=== PATIENT | female | born 1985 ===

== ENCOUNTER 2017-11-02 20:38 | Inpatient (IN) | payer MEDICAID ==
[2017-11-02] MEDS ORDERED: Sodium Chloride 0.9% 10 ML Syringe FLUSH PRN (21:10)
[2017-11-02] MEDS: Lactated Ringers 1,000 ML IV SCH ×2 (22:01→23:05)
--- NOTE | 2017-11-02 22:46 | PCM.PREANE ---
Preanesthetic Assessment - Anesthesia/Transfusion/Family Hx Anesthesia History: Prior Anesthesia Without Reaction Family History of Anesthesia Reaction: No Transfusion History: Prior Transfusion Without Reaction Intubation History: Unknown - Review of Systems General: No Symptoms Pulmonary: No Symptoms Cardiovascular: No Symptoms, Lightheadedness (with extreme activites) Gastrointestinal: No Symptoms (GERD), Constipation, Nausea Neurological: No Symptoms Other: Reports: Easy Bruising, Sinus Problem - Physical Assessment NPO Status Date: 11/02/17 NPO Status Time: 23:30 Pulse: 82 O2 Sat by Pulse Oximetry: 99 Respiratory Rate: 19 Blood Pressure: 127/86 Temperature: 36.5 C Vital Signs: Last Vital Signs Temp 36.5 C 11/02/17 20:52 Pulse 82 11/02/17 20:52 Resp 19 11/02/17 20:52 BP 127/86 11/02/17 20:52 Pulse Ox Height: 1.6 m Weight: 141.339 kg ASA Class: 2 Mental Status: Alert & Oriented x3 Airway Class: Mallampati = 3 Dentition: Reports: Normal Dentition, Caries Thyro-Mental Finger Breadths: 3 Mouth Opening Finger Breadths: 3 ROM/Head Extension: Full Lungs: Clear to Auscultation, Normal Respiratory Effort Cardiovascular: Regular Rate, Regular Rhythm, No Murmurs - Lab Values: Laboratory Last Values WBC 10.82 K/mm3 (3.98-10.04) H 11/02/17 21:25 RBC 3.86 M/mm3 (3.98-5.22) L 11/02/17 21:25 Hgb 11.4 gm/L (11.2-15.7) 11/02/17 21:25 Hct 34.0 % (34.1-44.9) L 11/02/17 21:25 MCV 88.1 fl (79.4-94.8) 11/02/17 21:25 MCH 29.5 pg (25.6-32.2) 11/02/17 21:25 MCHC 33.5 g/dl (32.2-35.5) 11/02/17 21:25 RDW Std Deviation 42.7 fL (36.4-46.3) 11/02/17 21:25 Plt Count 129 K/mm3 (182-369) L 11/02/17 21:25 MPV 12.7 fl (9.4-12.3) H 11/02/17 21:25 Neut % (Auto) 61.2 % (34.0-71.1) 11/02/17 21: Lymph % (Auto) 25.0 % (19.3-51.7) 11/02/17 21:25 [place] % (Auto) 12.1 % (4.7-12.5) 11/02/17 21: Eos % (Auto) 1.1 (0.7-5.8) 11/02/17 21:25 Baso % (Auto) 0.3 % (0.1-1.2) 11/02/17 21: Neut # (Auto) 6.62 K/mm3 (1.56-6.13) H 11/02/17 21: Lymph # (Auto) 2.71 K/mm3 (1.18-3.74) 11/02/17 21: [place] # (Auto) 1.31 K/mm3 (0.24-0.36) H 11/02/17 21:25 Eos # (Auto) 0.12 K/mm3 (0.04-0.36) 11/02/17 21:25 Baso # (Auto) 0.03 K/mm3 (0.01-0.08) 11/02/17 21:25 Manual Slide Review Normal smear 11/02/17 21:25 Blood Type B POSITIVE 11/02/17 21:25 Gel Antibody Screen Negative 11/02/17 21:25 Above lab values reviewed and noted and within acceptable ranges to proceed with epidural. - Allergies Allergies/Adverse Reactions: Allergies Allergy/AdvReac Type Severity Reaction Status Date / Time No Known Allergies Allergy Verified 11/02/17 21:13 - Anesthesia Plan Pre-Op Medication Ordered: Beta Sara Beta Sara: Labetalol Med Last Dose Date: 11/02/17 Med Last Dose Time: 09:30 - Acknowledgements Anesthesia Type Planned: Epidural Pt an Appropriate Candidate for the Planned Anesthesia: Yes Alternatives and Risks of Anesthesia Discussed w Pt/Guardian: Yes Pt/Guardian Understands and Agrees with Anesthesia Plan: Yes PreAnesthesia Questionnaire HEENT History: Reports: Other (See Below) (Seasonal allergies) POST ANESTHESIA ROOM NURSE History: Reports: Polycystic Ovaries, , Other (See Below) Other OB/BYN History: history of infertility Neurological History: Reports: Migraines Endocrine/Metabolic History: Reports: Obesity/BMI 30+ Dermatologic History: Reports: Eczema - Infectious Disease History Infectious Disease History: Reports: Chicken Pox - Past Surgical History HEENT Surgical History: Reports: Oral Surgery, Tonsillectomy - SUBSTANCE USE Smoking Status *Q: Never Smoker Recreational Drug Use History: No - HOME MEDS Home Medications: Home Meds Labetalol [Normodyne] 100 mg PO TID #90 tablet 10/27/17 [Rx] Vits #93/Iron Fum/FA [ Formula Tablet] 11/03/17 [History] Ranitidine HCl [Zantac] 150 mg PO 11/03/17 [History] - CURRENT (IN HOUSE) MEDS Current Meds: Current Medications Lactated Ringer's (Ringers, Lactated) 1,000 mls @ 100 mls/hr IV ASDIRECTED DC Last Admin: 11/02/17 22:01 Dose: 100 mls/hr Oxytocin 20 unit/ Lactated (Ringer's) 1,002 mls @ 500 mls/hr IV TITRATE DC PRN Reason: Protocol Sodium Chloride (Saline Flush) 10 ml FLUSH ASDIRECTED PRN PRN Reason: Keep Vein Open
[2017-11-02] MEDS ORDERED: fentaNYL 100 MCG/2 ML SDV EPIDUR PRN (22:47)
[2017-11-02] MEDS ORDERED: ePHEDrine 50 MG/ML SDV IVPUSH PRN (22:47)
[2017-11-02] MEDS ORDERED: Ondansetron 4 MG/2 ML SDV IVPUSH PRN (22:47)
[2017-11-02] MEDS ORDERED: Bupivacaine/fentaNYL/NS 100 ML Bag EPIDUR SCH (23:00)
[2017-11-03] MEDS ORDERED: Ammonia Inhalant Amp ONE (00:59)
[2017-11-03] MEDS: Lactated Ringers 1,000 ML IV SCH ×2 (04:14→07:31)
--- NOTE | 2017-11-03 06:06 | PCM.SN ---
- Free Text/Narrative Note: 0558 clear fluid, cervix 5 cm, 100 %, Soft, mid-position, cephalic -1-2 Cat I FHR. BP 120/70's-140/90's restarted labetalol 100 mg tid po. Has epidural in place.
--- NOTE | 2017-11-03 06:15 | PCM.LDHP ---
L&D History of Present Illness - General Date of Service: 11/03/17 Admit Problem/Dx: Patient Status Order with Admit Dx/Problem 11/02/17 21:10 Patient Status [ADT] Routine Admission Diagnosis/Problem Admission Diagnosis/Problem Source of Information: Patient History Limitations: Reports: No Limitations - History of Present Illness Introduction:: Jenniffer Gregory is a pleasant 32 year old with an BENITO of 2017 who presents to labor and delivery. Rupture of membranes (amniotomy) at 0558, clear fluid. This patient is Rh positive and also tested negative for GBS on 09/23/2017. Patients cervix is 5 cm 100%, mid position, soft vertex, and minus 1-2. Membranes were ruptured at 0558 with clear fluid. H/O gestational hypertension on Labetalol. Timing/Duration: Reports: hour(s): Quality: Reports: Ache, Dull, Pressure Severity: Moderate Pain Score: 7 - Related Data Allergies/Adverse Reactions: Allergies Allergy/AdvReac Type Severity Reaction Status Date / Time No Known Allergies Allergy Verified 11/02/17 21:13 Home Medications: Home Meds Labetalol [Normodyne] 100 mg PO TID #90 tablet 10/27/17 [Rx] Vits #93/Iron Fum/FA [ Formula Tablet] 11/03/17 [History] Ranitidine HCl [Zantac] 150 mg PO 11/03/17 [History] Past Medical History HEENT History: Reports: Other (See Below) (Seasonal allergies) PLASTIC SURGERY NURSE History: Reports: Polycystic Ovaries, , Other (See Below) Other OB/BYN History: history of infertility Neurological History: Reports: Migraines Endocrine/Metabolic History: Reports: Obesity/BMI 30+ Dermatologic History: Reports: Eczema - Infectious Disease History Infectious Disease History: Reports: Chicken Pox - Past Surgical History HEENT Surgical History: Reports: Oral Surgery, Tonsillectomy Social & Family History - Tobacco Use Smoking Status *Q: Never Smoker - Recreational Drug Use Recreational Drug Use: No H&P Review of Systems - Review of Systems: Review Of Systems: See Below General: Reports: Fatigue Pulmonary: Reports: No Symptoms Cardiovascular: Reports: No Symptoms Gastrointestinal: Reports: Constipation, Nausea Genitourinary: Reports: No Symptoms Musculoskeletal: Reports: Back Pain Psychiatric: Reports: No Symptoms L&D Exam - Exam Exam: See Below - Vital Signs Vital Signs: Last Vital Signs Temp 97.7 F 11/03/17 00:22 Pulse 82 11/03/17 00:22 Resp 19 11/03/17 00:22 BP 127/86 11/03/17 00:22 Pulse Ox 99 11/03/17 00:22 Weight: 311 lb 9.6 oz - OB Specific Fundal Height In cm: 39 Contraction Duration (sec): 60 Contraction Frequency (min): 5 Contraction Intensity: Mild to Moderate Movement: Active Heart Tones: Present Heart Tones per Min: 140 Heart Rate (FHR) Variability: Minimal (0-5 bpm) Presentation: Vertex - Dixon Score Dixon Score Cervix Position: Midposition Dixon Score Consistency: Soft Dixon Score Effacement: >80% Dixon Score Dilation: > 5 cm - Exam General: Alert, Oriented, Cooperative HEENT: Conjunctiva Clear, EOMI, Pupils Equal, Pupils Reactive Neck: Supple, Trachea Midline Lungs: Clear to Auscultation, Normal Respiratory Effort Cardiovascular: Regular Rate, Regular Rhythm GI/Abdominal Exam: Soft, Non-Tender, No Distention, No Mass Extremities: Pedal Edema Skin: Warm, Dry, Intact Neurological: Reflexes Equal Bilateral DTR: 2+: Bicep (L), Bicep (R), Patella (L), Patella (R) Psychiatric: Alert, Normal Affect, Normal Mood - Patient Data Lab Results Last 24 hrs: Laboratory Results - last 24 hr 11/02/17 11/02/17 Range/Units 21:25 21:25 WBC 10.82 H (3.98-10.04) K/mm3 RBC 3.86 L (3.98-5.22) M/mm3 Hgb 11.4 (11.2-15.7) gm/L Hct 34.0 L (34.1-44.9) % MCV 88.1 (79.4-94.8) fl MCH 29.5 (25.6-32.2) pg MCHC 33.5 (32.2-35.5) g/dl RDW Std Deviation 42.7 (36.4-46.3) fL Plt Count 129 L (182-369) K/mm3 MPV 12.7 H (9.4-12.3) fl Neut % (Auto) 61.2 (34.0-71.1) % Lymph % (Auto) 25.0 (19.3-51.7) % [place] % (Auto) 12.1 (4.7-12.5) % Eos % (Auto) 1.1 (0.7-5.8) Baso % (Auto) 0.3 (0.1-1.2) % Neut # (Auto) 6.62 H (1.56-6.13) K/mm3 Lymph # (Auto) 2.71 (1.18-3.74) K/mm3 [place] # (Auto) 1.31 H (0.24-0.36) K/mm3 Eos # (Auto) 0.12 (0.04-0.36) K/mm3 Baso # (Auto) 0.03 (0.01-0.08) K/mm3 Manual Slide Review Normal smear Blood Type B POSITIVE Gel Antibody Screen Negative Result Diagrams: 11/02/17 21:25 - Problem List (1) 39 weeks gestation of SNOMED Code(s): 44679659 ICD Code: Z3A.39 - 39 WEEKS GESTATION OF Status: Acute Current Visit: Yes (2) Transient hypertension of SNOMED Code(s): 956047719 ICD Code: O13.9 - GESTATIONAL HTN W/O SIGNIFICANT PROTEINURIA, UNSP TRIMESTER Status: Acute Current Visit: Yes Qualifiers: Trimester: third trimester Qualified Code(s): O13.3 - Gestational [ -induced] hypertension without significant proteinuria, third trimester Problem List Initiated/Reviewed/Updated: No Orders Last 24hrs: Active Orders 24 hr Category Date Time Status Patient Status [ADT] Routine ADT 11/02/17 21:10 Active Activity as Tolerated [RC] PFP Care 11/02/17 21:10 Active Communication Order [RC] ASDIRECTED Care 11/02/17 21:10 Active Heart Tones [RC] ASDIRECTED Care 11/02/17 21:10 Active Insert Francisco Catheter [Insert Urinary Catheter] [OM.PC] Care 11/02/17 21:15 Ordered Q24H Notify Provider [RC] ASDIRECTED Care 11/02/17 22:47 Active Notify Provider [RC] PFP Care 11/02/17 21:10 Active Notify Provider [RC] PRN Care 11/02/17 21:10 Active Oxygen Therapy [RC] ASDIRECTED Care 11/02/17 22:46 Active PCEA Epidural [RC] ASDIRECTED Care 11/02/17 21:12 Active Peripheral IV Care [RC] . DIRECTED Care 11/02/17 21:10 Active Pulse Oximetry [RC] ASDIRECTED Care 11/02/17 22:46 Active Urinary Catheter Assessment [RC] ASDIRECTED Care 11/02/17 21:12 Active Vital Signs [RC] PER UNIT ROUTINE Care 11/02/17 21:10 Active Clear Liquid Diet [DIET] Diet 11/02/17 Dinner Active PATIENT RETYPE [BBK] Stat Lab 11/02/17 21:25 Results TYPE AND SCREEN [BBK] Stat Lab 11/02/17 21:25 Results Bupivacaine/fentaNYL/NS [fentaNYL/Bupivacaine/NS 2 MCG- Med 11/02/17 23:00 Active 0.125% 100 ML] 100 ml EPIDUR ASDIRECTED Labetalol [Normodyne] Med 11/03/17 09:00 Active 100 mg PO TID Lactated Ringers [Ringers, Lactated] 1,000 ml Med 11/02/17 21:15 Active IV ASDIRECTED Ondansetron [Zofran] Med 11/02/17 22:47 Active 4 mg IVPUSH ONETIME PRN Oxytocin [Pitocin] 20 unit Med 11/02/17 21:15 Active Lactated Ringers [Ringers, Lactated] 1,000 ml IV TITRATE Sodium Chloride 0.9% [Saline Flush] Med 11/02/17 21:10 Active 10 ml FLUSH ASDIRECTED PRN ePHEDrine [ePHEDrine Sulfate] Med 11/02/17 22:47 Active 5 mg IVPUSH ASDIRECTED PRN fentaNYL [Sublimaze] Med 11/02/17 22:47 Active 100 mcg EPIDUR Q3H PRN Electronic Heart Tones Ext w TOCO [WOMSER] Oth 11/02/17 21:10 Ordered Routine Electronic Heart Tones Internal [WOMSER] Per Unit Oth 11/02/17 21:10 Ordered Routine Peripheral IV Insertion Adult [OM.PC] Routine Oth 11/02/17 21:10 Ordered Resuscitation Status Routine Resus Stat 11/02/17 21:10 Ordered Medication Orders Ephedrine Sulfate (Ephedrine Sulfate) 5 mg IVPUSH ASDIRECTED PRN PRN Reason: Hypotension Fentanyl (Sublimaze) 100 mcg EPIDUR Q3H PRN PRN Reason: Pain Last Admin: 11/03/17 00:15 Dose: 100 mcg Fentanyl/Bupivacaine HCl (Fentanyl/Bupivacaine/Ns 2 Mcg-0.125% 100 Ml) 100 ml EPIDUR ASDIRECTED [facility] Last Admin: 11/03/17 00:14 Dose: 100 ml Lactated Ringer's (Ringers, Lactated) 1,000 mls @ 100 mls/hr IV ASDIRECTED [facility] Last Admin: 11/03/17 04:14 Dose: 100 mls/hr Infusion: 11/03/17 04:14 Dose: 100 mls/hr Admin: 11/02/17 23:05 Dose: 100 mls/hr Infusion: 11/02/17 23:05 Dose: 100 mls/hr Admin: 11/02/17 22:01 Dose: 100 mls/hr Oxytocin 20 unit/ Lactated (Ringer's) 1,002 mls @ 500 mls/hr IV TITRATE [facility] PRN Reason: Protocol Labetalol HCl (Normodyne) 100 mg PO TID [facility] Ondansetron HCl (Zofran) 4 mg IVPUSH ONETIME PRN PRN Reason: Nausea/Vomiting Sodium Chloride (Saline Flush) 10 ml FLUSH ASDIRECTED PRN PRN Reason: Keep Vein Open Assessment/Plan Comment:: Patient seen and evaluated and discussed with student.
[2017-11-03] MEDS: Labetalol 100 MG Tab PO SCH ×4 (07:30→21:39)
[2017-11-03] MEDS ORDERED: Oxytocin/Lactated Ringers 20 UNIT/1,000 ML BAG IV ONE (08:19)
--- NOTE | 2017-11-03 09:12 | PCM.DEL ---
L & D Note - General Info Date of Service: 11/03/17 Mother's Due Date: 11/09/17 - Delivery Note Labor: Spontaneous, Augmented by ARM Delivery Outcome: Livebirth (Female liveborn 0855 hrs. on Wednesday11/03/17, Apgars 8/9 weight 3550 grams, 7 pounds 13.2 ounces) Infant Delivery Method: Spontaneous Vaginal Delivery-Single Infant Delivery Mode: Spontaneous Presentation: Vertex Anesthesia Type: None Episiotomy Type: None Laceration: None Placenta: Intact, Spontaneous (Wednesday11/03/17 at 0900 hrs. central cord insertion intact examined discarded [place]) Cord: 3 Vessels Estimated Blood Loss: 250 Resuscitation Needed: No [place]: Suctioned, Bulb Syringe, Stimulated, Warmed, [place] Used, Warmer Used Provider: Eric Abreu Score 1 min: 8 Score 5 min: 9 - Patient Data Vitals - Most Recent: Last Vital Signs Temp 97.7 F 11/03/17 00:22 Pulse 80 11/03/17 07:30 Resp 19 11/03/17 00:22 BP 145/79 H 11/03/17 07:30 Pulse Ox 99 11/03/17 00:22 Weight - Most Recent: 311 lb 9.6 oz Lab Results Last 24 Hours: Laboratory Results - last 24 hr 11/02/17 11/02/17 Range/Units 21:25 21:25 WBC 10.82 H (3.98-10.04) K/mm3 RBC 3.86 L (3.98-5.22) M/mm3 Hgb 11.4 (11.2-15.7) gm/L Hct 34.0 L (34.1-44.9) % MCV 88.1 (79.4-94.8) fl MCH 29.5 (25.6-32.2) pg MCHC 33.5 (32.2-35.5) g/dl RDW Std Deviation 42.7 (36.4-46.3) fL Plt Count 129 L (182-369) K/mm3 MPV 12.7 H (9.4-12.3) fl Neut % (Auto) 61.2 (34.0-71.1) % Lymph % (Auto) 25.0 (19.3-51.7) % [place] % (Auto) 12.1 (4.7-12.5) % Eos % (Auto) 1.1 (0.7-5.8) Baso % (Auto) 0.3 (0.1-1.2) % Neut # (Auto) 6.62 H (1.56-6.13) K/mm3 Lymph # (Auto) 2.71 (1.18-3.74) K/mm3 [place] # (Auto) 1.31 H (0.24-0.36) K/mm3 Eos # (Auto) 0.12 (0.04-0.36) K/mm3 Baso # (Auto) 0.03 (0.01-0.08) K/mm3 Manual Slide Review Normal smear Blood Type B POSITIVE Gel Antibody Screen Negative Med Orders - Current: Current Medications Ephedrine Sulfate (Ephedrine Sulfate) 5 mg IVPUSH ASDIRECTED PRN PRN Reason: Hypotension Fentanyl (Sublimaze) 100 mcg EPIDUR Q3H PRN PRN Reason: Pain Last Admin: 11/03/17 00:15 Dose: 100 mcg Fentanyl/Bupivacaine HCl (Fentanyl/Bupivacaine/Ns 2 Mcg-0.125% 100 Ml) 100 ml EPIDUR ASDIRECTED [facility] Last Admin: 11/03/17 00:14 Dose: 100 ml Lactated Ringer's (Ringers, Lactated) 1,000 mls @ 100 mls/hr IV ASDIRECTED [facility] Last Admin: 11/03/17 07:31 Dose: 100 mls/hr Oxytocin 20 unit/ Lactated (Ringer's) 1,002 mls @ 500 mls/hr IV TITRATE [facility] PRN Reason: Protocol Labetalol HCl (Normodyne) 100 mg PO TID [facility] Last Admin: 11/03/17 07:30 Dose: 100 mg Ondansetron HCl (Zofran) 4 mg IVPUSH ONETIME PRN PRN Reason: Nausea/Vomiting Sodium Chloride (Saline Flush) 10 ml FLUSH ASDIRECTED PRN PRN Reason: Keep Vein Open Discontinued Medications Ammonia (Aromatic Spirit) (Ammonia Aromatic Inhalant) Confirm Administered Dose 1 ampule .ROUTE .STK-MED ONE Stop: 11/03/17 01:00 Last Admin: 11/03/17 07:44 Dose: Not Given Oxytocin/Lactated Ringer's (Pitocin In Lr 20 Units/1,000 Ml) Confirm Administered Dose 20 unit in 1,000 mls @ as directed IV .STK-MED ONE Stop: 11/03/17 08:20 - Problem List & Annotations (1) Gestational hypertension SNOMED Code(s): 36046573 Code(s): O13.9 - GESTATIONAL HTN W/O SIGNIFICANT PROTEINURIA, UNSP TRIMESTER Status: Acute Current Visit: Yes (2) Normal delivery SNOMED Code(s): 97462277 Code(s): O80 - ENCOUNTER FOR FULL-TERM UNCOMPLICATED DELIVERY; Z37.9 - OUTCOME OF DELIVERY, UNSPECIFIED Status: Acute Current Visit: Yes (3) 39 weeks gestation of SNOMED Code(s): 77363432 Code(s): Z3A.39 - 39 WEEKS GESTATION OF Status: Acute Current Visit: Yes - Problem List Review Problem List Initiated/Reviewed/Updated: No - My Orders Last 24 Hours: My Active Orders 11/02/17 21:10 Patient Status [ADT] Routine Activity as Tolerated [RC] PFP Communication Order [RC] ASDIRECTED Heart Tones [RC] ASDIRECTED Notify Provider [RC] PFP Notify Provider [RC] PRN Peripheral IV Care [RC] . DIRECTED Vital Signs [RC] PER UNIT ROUTINE Sodium Chloride 0.9% [Saline Flush] 10 ml FLUSH ASDIRECTED PRN Electronic Heart Tones Ext w TOCO [WOMSER] Routine Electronic Heart Tones Internal [WOMSER] Per Unit Routine Peripheral IV Insertion Adult [OM.PC] Routine Resuscitation Status Routine 11/02/17 21:12 PCEA Epidural [RC] ASDIRECTED Urinary Catheter Assessment [RC] ASDIRECTED 11/02/17 21:15 Insert Francisco Catheter [Insert Urinary Catheter] [OM.PC] Q24H Lactated Ringers [Ringers, Lactated] 1,000 ml IV ASDIRECTED Oxytocin [Pitocin] 20 unit Lactated Ringers [Ringers, Lactated] 1,000 ml IV TITRATE 11/02/17 21:25 PATIENT RETYPE [BBK] Stat TYPE AND SCREEN [BBK] Stat 11/02/17 Dinner Clear Liquid Diet [DIET] 11/03/17 09:00 Labetalol [Normodyne] 100 mg PO TID - Plan Plan:: Patient seen and evaluated and discussed with student.
[2017-11-03] MEDS ORDERED: Simethicone 80 MG Tab.Chew PO PRN (09:25)
[2017-11-03] MEDS ORDERED: Witch Hazel Medicated Pads 100/Jar TOP PRN (09:25)
[2017-11-03] MEDS ORDERED: Benzocaine/Menthol 20%-0.5% Spray 56 GM Canister TOP PRN (09:25)
[2017-11-03] MEDS ORDERED: Docusate Sodium 100 MG Cap PO PRN (09:25)
[2017-11-03] MEDS ORDERED: Lanolin 100% Cream 7 GM Tube TOP PRN (09:25)
[2017-11-03] MEDS ORDERED: Acetaminophen 325 MG Tab PO PRN (09:25)
[2017-11-03] MEDS: Ibuprofen 600 MG Tab PO PRN ×2 (13:07→20:25)
[2017-11-03] MEDS ORDERED: Labetalol 100 MG Tab PO SCH (15:00)
[2017-11-03] MEDS ORDERED: Bupivacaine 0.25% 10 ML SDV ONE (22:22)
[2017-11-04] MEDS: Ibuprofen 600 MG Tab PO PRN ×2 (01:36→10:35)
--- NOTE | 2017-11-04 08:20 | PCM.DCSUM1 ---
Discharge Summary - Hospital Course Free Text/Narrative:: Increase labetalol to 100 mg 4 times a day dispense 120 end refill [address] Santamaria in 2 weeks [facility] LIVE L/D Delivery Note Patient Name: ESTEE FLEMING Date of : 89 Patient Status: Inpatient Attending Provider: Eric Abreu Date: 11/03/17 09:08 Initialization Date: 11/03/17 09:08 L & D Note - General Info Date of Service: 11/03/17 Mother's Due Date: 11/09/17 - Delivery Note Labor: Spontaneous, Augmented by ARM Delivery Outcome: Livebirth (Female liveborn 0855 hrs. on Wednesday11/03/17, Apgars 8/9 weight 3550 grams, 7 pounds 13.2 ounces) Infant Delivery Method: Spontaneous Vaginal Delivery-Single Delivery Mode: Spontaneous Presentation: Vertex Anesthesia Type: None Episiotomy Type: None Laceration: None Placenta: Intact, Spontaneous (Wednesday11/03/17 at 0900 hrs. central cord insertion intact examined discarded P[place]) Cord: 3 Vessels Estimated Blood Loss: 250 Resuscitation Needed: No [place]: Suctioned, Bulb Syringe, Stimulated, Warmed, [place] Used, Warmer Used Provider: Eric Abreu Score 1 min: 8 Score 5 min: 9 - Patient Data Vitals - Most Recent: Last Vital Signs Temp 97.7 F 11/03/17 00:22 Pulse 80 11/03/17 07:30 Resp 19 11/03/17 00:22 BP 145/79 H 11/03/17 07:30 Pulse Ox 99 11/03/17 00:22 Weight - Most Recent: 311 lb 9.6 oz Lab Results Last 24 Hours: Laboratory Results - last 24 hr 11/02/17 11/02/17 Range/Units 21:25 21:25 WBC 10.82 H (3.98-10.04) K/mm3 RBC 3.86 L (3.98-5.22) M/mm3 Hgb 11.4 (11.2-15.7) gm/L Hct 34.0 L (34.1-44.9) % MCV 88.1 (79.4-94.8) fl MCH 29.5 (25.6-32.2) pg MCHC 33.5 (32.2-35.5) g/dl RDW Std Deviation 42.7 (36.4-46.3) fL Plt Count 129 L (182-369) K/mm3 MPV 12.7 H (9.4-12.3) fl Neut % (Auto) 61.2 (34.0-71.1) % Lymph % (Auto) 25.0 (19.3-51.7) % Phillips % (Auto) 12.1 (4.7-12.5) % Eos % (Auto) 1.1 (0.7-5.8) Baso % (Auto) 0.3 (0.1-1.2) % Neut # (Auto) 6.62 H (1.56-6.13) K/mm3 Lymph # (Auto) 2.71 (1.18-3.74) K/mm3 Phillips # (Auto) 1.31 H (0.24-0.36) K/mm3 Eos # (Auto) 0.12 (0.04-0.36) K/mm3 Baso # (Auto) 0.03 (0.01-0.08) K/mm3 Manual Slide Review Normal smear Blood Type B POSITIVE Gel Antibody Screen Negative Med Orders - Current: Current Medications Ephedrine Sulfate (Ephedrine Sulfate) 5 mg IVPUSH ASDIRECTED PRN PRN Reason: Hypotension Fentanyl (Sublimaze) 100 mcg EPIDUR Q3H PRN PRN Reason: Pain Last Admin: 11/03/17 00:15 Dose: 100 mcg Fentanyl/Bupivacaine HCl (Fentanyl/Bupivacaine/Ns 2 Mcg-0.125% 100 Ml) 100 ml EPIDUR ASDIRECTED DC Last Admin: 11/03/17 00:14 Dose: 100 ml Lactated Ringer's (Ringers, Lactated) 1,000 mls @ 100 mls/hr IV ASDIRECTED DC Last Admin: 11/03/17 07:31 Dose: 100 mls/hr Oxytocin 20 unit/ Lactated (Ringer's) 1,002 mls @ 500 mls/hr IV TITRATE DC PRN Reason: Protocol Labetalol HCl (Normodyne) 100 mg PO TID [facility] Last Admin: 11/03/17 07:30 Dose: 100 mg Ondansetron HCl (Zofran) 4 mg IVPUSH ONETIME PRN PRN Reason: Nausea/Vomiting Sodium Chloride (Saline Flush) 10 ml FLUSH ASDIRECTED PRN PRN Reason: Keep Vein Open Discontinued Medications Ammonia (Aromatic Spirit) (Ammonia Aromatic Inhalant) Confirm Administered Dose 1 ampule .ROUTE .[employer] ONE Stop: 11/03/17 01:00 Last Admin: 11/03/17 07:44 Dose: Not Given Oxytocin/Lactated Ringer's (Pitocin In Lr 20 Units/1,000 Ml) Confirm Administered Dose 20 unit in 1,000 mls @ as directed IV .[employer] ONE Stop: 11/03/17 08:20 - Problem List & Annotations (1) Gestational hypertension SNOMED Code(s): 10226409 Code(s): O13.9 - GESTATIONAL HTN W/O SIGNIFICANT PROTEINURIA, UNSP TRIMESTER Status: Acute Current Visit: Yes (2) Normal delivery SNOMED Code(s): 02700874 Code(s): O80 - ENCOUNTER FOR FULL-TERM UNCOMPLICATED DELIVERY; Z37.9 - OUTCOME OF DELIVERY, UNSPECIFIED Status: Acute Current Visit: Yes (3) 39 weeks gestation of SNOMED Code(s): 41825038 Code(s): Z3A.39 - 39 WEEKS GESTATION OF Status: Acute Current Visit: Yes - Problem List Review Problem List Initiated/Reviewed/Updated: No - My Orders Last 24 Hours: My Active Orders 11/02/17 21:10 Patient Status [ADT] Routine Activity as Tolerated [RC] PFP Communication Order [RC] ASDIRECTED Heart Tones [RC] ASDIRECTED Notify Provider [RC] PFP Notify Provider [RC] PRN Peripheral IV Care [RC] . DIRECTED Vital Signs [RC] PER UNIT ROUTINE Sodium Chloride 0.9% [Saline Flush] 10 ml FLUSH ASDIRECTED PRN Electronic Heart Tones Ext w TOCO [WOMSER] Routine Electronic Heart Tones Internal [WOMSER] Per Unit Routine Peripheral IV Insertion Adult [OM.PC] Routine Resuscitation Status Routine 11/02/17 21:12 PCEA Epidural [RC] ASDIRECTED Urinary Catheter Assessment [RC] ASDIRECTED 11/02/17 21:15 Insert Francisco Catheter [Insert Urinary Catheter] [OM.PC] Q24H Lactated Ringers [Ringers, Lactated] 1,000 ml IV ASDIRECTED Oxytocin [Pitocin] 20 unit Lactated Ringers [Ringers, Lactated] 1,000 ml IV TITRATE 11/02/17 21:25 PATIENT RETYPE [BBK] Stat TYPE AND SCREEN [BBK] Stat 11/02/17 Dinner Clear Liquid Diet [DIET] 11/03/17 09:00 Labetalol [Normodyne] 100 mg PO TID - Plan Plan:: Patient seen and evaluated and discussed with student. HPI Initial Comments: Increase labetalol to 100 mg 4 times a day dispense 120 end refill [address] Santamaria in 2 weeks [facility] LIVE L/D Delivery Note Patient Name: ESTEE FLEMING Date of : 89 Patient Status: Inpatient Attending Provider: Eric Abreu Date: 11/03/17 09:08 Initialization Date: 11/03/17 09:08 L & D Note - General Info Date of Service: 11/03/17 Mother's Due Date: 11/09/17 - Delivery Note Labor: Spontaneous, Augmented by ARM Delivery Outcome: Livebirth (Female liveborn 0855 hrs. on Wednesday11/03/17, Apgars 8/9 weight 3550 grams, 7 pounds 13.2 ounces) Infant Delivery Method: Spontaneous Vaginal Delivery-Single Infant Delivery Mode: Spontaneous Presentation: Vertex Anesthesia Type: None Episiotomy Type: None Laceration: None Placenta: Intact, Spontaneous (Wednesday11/03/17 at 0900 hrs. central cord insertion intact examined ciera Herbert) Cord: 3 Vessels Estimated Blood Loss: 250 Resuscitation Needed: No : Suctioned, Bulb Syringe, Stimulated, Warmed, [place] Used, Warmer Used Provider: Eric Abreu Score 1 min: 8 Score 5 min: 9 - Patient Data Vitals - Most Recent: Last Vital Signs Temp 97.7 F 11/03/17 00:22 Pulse 80 11/03/17 07:30 Resp 19 11/03/17 00:22 BP 145/79 H 11/03/17 07:30 Pulse Ox 99 11/03/17 00:22 Weight - Most Recent: 311 lb 9.6 oz Lab Results Last 24 Hours: Laboratory Results - last 24 hr 11/02/17 11/02/17 Range/Units 21:25 21:25 WBC 10.82 H (3.98-10.04) K/mm3 RBC 3.86 L (3.98-5.22) M/mm3 Hgb 11.4 (11.2-15.7) gm/L Hct 34.0 L (34.1-44.9) % MCV 88.1 (79.4-94.8) fl MCH 29.5 (25.6-32.2) pg MCHC 33.5 (32.2-35.5) g/dl RDW Std Deviation 42.7 (36.4-46.3) fL Plt Count 129 L (182-369) K/mm3 MPV 12.7 H (9.4-12.3) fl Neut % (Auto) 61.2 (34.0-71.1) % Lymph % (Auto) 25.0 (19.3-51.7) % Phillips % (Auto) 12.1 (4.7-12.5) % Eos % (Auto) 1.1 (0.7-5.8) Baso % (Auto) 0.3 (0.1-1.2) % Neut # (Auto) 6.62 H (1.56-6.13) K/mm3 Lymph # (Auto) 2.71 (1.18-3.74) K/mm3 Phillips # (Auto) 1.31 H (0.24-0.36) K/mm3 Eos # (Auto) 0.12 (0.04-0.36) K/mm3 Baso # (Auto) 0.03 (0.01-0.08) K/mm3 Manual Slide Review Normal smear Blood Type B POSITIVE Gel Antibody Screen Negative Med Orders - Current: Current Medications Ephedrine Sulfate (Ephedrine Sulfate) 5 mg IVPUSH ASDIRECTED PRN PRN Reason: Hypotension Fentanyl (Sublimaze) 100 mcg EPIDUR Q3H PRN PRN Reason: Pain Last Admin: 11/03/17 00:15 Dose: 100 mcg Fentanyl/Bupivacaine HCl (Fentanyl/Bupivacaine/Ns 2 Mcg-0.125% 100 Ml) 100 ml EPIDUR ASDIRECTED [facility] Last Admin: 11/03/17 00:14 Dose: 100 ml Lactated Ringer's (Ringers, Lactated) 1,000 mls @ 100 mls/hr IV ASDIRECTED [facility] Last Admin: 11/03/17 07:31 Dose: 100 mls/hr Oxytocin 20 unit/ Lactated (Ringer's) 1,002 mls @ 500 mls/hr IV TITRATE DC PRN Reason: Protocol Labetalol HCl (Normodyne) 100 mg PO TID [facility] Last Admin: 11/03/17 07:30 Dose: 100 mg Ondansetron HCl (Zofran) 4 mg IVPUSH ONETIME PRN PRN Reason: Nausea/Vomiting Sodium Chloride (Saline Flush) 10 ml FLUSH ASDIRECTED PRN PRN Reason: Keep Vein Open Discontinued Medications Ammonia (Aromatic Spirit) (Ammonia Aromatic Inhalant) Confirm Administered Dose 1 ampule .ROUTE .[employer] ONE Stop: 11/03/17 01:00 Last Admin: 11/03/17 07:44 Dose: Not Given Oxytocin/Lactated Ringer's (Pitocin In Lr 20 Units/1,000 Ml) Confirm Administered Dose 20 unit in 1,000 mls @ as directed IV .[employer] ONE Stop: 11/03/17 08:20 - Problem List & Annotations (1) Gestational hypertension SNOMED Code(s): 99406728 Code(s): O13.9 - GESTATIONAL HTN W/O SIGNIFICANT PROTEINURIA, UNSP TRIMESTER Status: Acute Current Visit: Yes (2) Normal delivery SNOMED Code(s): 10128822 Code(s): O80 - ENCOUNTER FOR FULL-TERM UNCOMPLICATED DELIVERY; Z37.9 - OUTCOME OF DELIVERY, UNSPECIFIED Status: Acute Current Visit: Yes (3) 39 weeks gestation of SNOMED Code(s): 47059850 Code(s): Z3A.39 - 39 WEEKS GESTATION OF Status: Acute Current Visit: Yes - Problem List Review Problem List Initiated/Reviewed/Updated: No - My Orders Last 24 Hours: My Active Orders 11/02/17 21:10 Patient Status [ADT] Routine Activity as Tolerated [RC] PFP Communication Order [RC] ASDIRECTED Heart Tones [RC] ASDIRECTED Notify Provider [RC] PFP Notify Provider [RC] PRN Peripheral IV Care [RC] . DIRECTED Vital Signs [RC] PER UNIT ROUTINE Sodium Chloride 0.9% [Saline Flush] 10 ml FLUSH ASDIRECTED PRN Electronic Heart Tones Ext w TOCO [WOMSER] Routine Electronic Heart Tones Internal [WOMSER] Per Unit Routine Peripheral IV Insertion Adult [OM.PC] Routine Resuscitation Status Routine 11/02/17 21:12 PCEA Epidural [RC] ASDIRECTED Urinary Catheter Assessment [RC] ASDIRECTED 11/02/17 21:15 Insert Francisco Catheter [Insert Urinary Catheter] [OM.PC] Q24H Lactated Ringers [Ringers, Lactated] 1,000 ml IV ASDIRECTED Oxytocin [Pitocin] 20 unit Lactated Ringers [Ringers, Lactated] 1,000 ml IV TITRATE 11/02/17 21:25 PATIENT RETYPE [BBK] Stat TYPE AND SCREEN [BBK] Stat 11/02/17 Dinner Clear Liquid Diet [DIET] 11/03/17 09:00 Labetalol [Normodyne] 100 mg PO TID - Plan Plan:: Patient seen and evaluated and discussed with student. Brief History: Increase labetalol to 100 mg 4 times a day dispense 120 end refill 1. See Dr. Santamaria in 2 weeks. [facility] LIVE . L/D Delivery Note. [facility] Number: [id number]. Date of : 89Patient Status: Inpatient. Attending Provider: Eric Abreu Number: [id number]. Date: 11/03/17 09: 08Initialization Date: 11/03/17 09:08. L & D Note. - General Info. Date of Service: 11/03/17. Mother's Due Date: 11/09/17. - Delivery Note. Labor: Spontaneous, Augmented by ARM. Delivery Outcome: Livebirth (Female liveborn 0855 hrs. on Wednesday11/03/17, Apgars 8/9 weight 3550 grams, 7 pounds 13.2 ounces). Delivery Method: Spontaneous Vaginal Delivery-Single. Delivery Mode: Spontaneous. Presentation: Vertex. Anesthesia Type: None. Episiotomy Type: None. Laceration: None. Placenta: Intact, Spontaneous (Wednesday11/03/17 at 0900 hrs. central cord insertion intact examined discarded Herbert). Cord: 3 Vessels. Estimated Blood Loss: 250. Resuscitation Needed: No. [place]: Suctioned, Bulb Syringe, Stimulated, Warmed, [place] Used, Warmer Used. Provider: Eric Abreu. Score 1 min: 8. Score 5 min: 9. - Patient Data. Vitals - Most Recent: Last Vital Signs. Temp 97.7 F 11/03/17 00:22. Pulse 80 11/03/17 07:30. Resp 19 11/03/17 00: 22. BP 145/79 H 11/03/17 07:30. Pulse Ox 99 11/03/17 00:22. Weight - Most Recent: 311 lb 9.6 oz. Lab Results Last 24 Hours: Laboratory Results - last 24 hr. 11/02/1802Range/Units. 21:2521:25. WBC 10.82 H (3.98-10.04) K/ mm3. RBC 3.86 L (3.98-5.22) M/mm3. Hgb 11.4 (11.2-15.7) gm/L. Hct 34.0 L ( 34.1-44.9) %. MCV 88.1 (79.4-94.8) fl. MCH 29.5 (25.6-32.2) pg. MCHC 33.5 (32.2-35.5) g/dl. RDW Std Deviation 42.7 (36.4-46.3) fL. Plt Count 129 L ( 182-369) K/mm3. MPV 12.7 H (9.4-12.3) fl. Neut % (Auto) 61.2 (34.0-71.1) % . Lymph % (Auto) 25.0 (19.3-51.7) %. Phillips % (Auto) 12.1 (4.7-12.5) %. Eos % (Auto) 1.1 (0.7-5.8). Baso % (Auto) 0.3 (0.1-1.2) %. Neut # (Auto) 6.62 H ( 1.56-6.13) K/mm3. Lymph # (Auto) 2.71 (1.18-3.74) K/mm3. Phillips # (Auto) 1.31 H (0.24-0.36) K/mm3. Eos # (Auto) 0.12 (0.04-0.36) K/mm3. Baso # (Auto) 0.03 (0.01-0.08) K/mm3. Manual Slide Review Normal smear. Blood Type B POSITIVE. Gel Antibody Screen Negative. Med Orders - Current: Current Medications. Ephedrine Sulfate (Ephedrine Sulfate) 5 mg IVPUSH ASDIRECTED PRN. PRN Reason: Hypotension. Fentanyl (Sublimaze) 100 mcg EPIDUR Q3H PRN. PRN Reason: Pain. Last Admin: 11/03/17 00:15 Dose: 100 mcg. Fentanyl/ Bupivacaine HCl (Fentanyl/Bupivacaine/Ns 2 Mcg-0.125% 100 Ml) 100 ml EPIDUR ASDIRECTED DC. Last Admin: 11/03/17 00:14 Dose: 100 ml. Lactated Ringer's ( Ringers, Lactated) 1,000 mls @ 100 mls/hr IV ASDIRECTED DC. Last Admin: 11/03 07:31 Dose: 100 mls/hr. Oxytocin 20 unit/ Lactated (Ringer's) 1,002 mls @ 500 mls/hr IV TITRATE DC. PRN Reason: Protocol. Labetalol HCl (Normodyne) 100 mg PO TID DC. Last Admin: 11/03/17 07:30 Dose: 100 mg. Ondansetron HCl ( Zofran) 4 mg IVPUSH ONETIME PRN. PRN Reason: Nausea/Vomiting. Sodium Chloride (Saline Flush) 10 ml FLUSH ASDIRECTED PRN. PRN Reason: Keep Vein Open. Discontinued Medications. Ammonia (Aromatic Spirit) (Ammonia Aromatic Inhalant) Confirm Administered Dose 1 ampule .ROUTE .[employer]. Stop: 01:00. Last Admin: 11/03/17 07:44 Dose: Not Given. Oxytocin/Lactated Ringer's (Pitocin In Lr 20 Units/1,000 Ml) Confirm Administered Dose 20 unit in 1,000 mls @ as directed IV .[employer] [facility]. Stop: 11/03/17 08:20. - Problem List & Annotations. (1) Gestational hypertension. SNOMED Code(s): 97637571. Code(s ): O13.9 - GESTATIONAL HTN W/O SIGNIFICANT PROTEINURIA, UNSP TRIMESTER Status : Acute Current Visit: Yes. (2) Normal delivery. SNOMED Code(s): 72653080. Code(s): O80 - ENCOUNTER FOR FULL-TERM UNCOMPLICATED DELIVERY; Z37.9 - OUTCOME OF DELIVERY, UNSPECIFIED Status: Acute Current Visit: Yes. (3) 39 weeks gestation of . SNOMED Code(s): 68932540. Code(s): Z3A.39 - 39 WEEKS GESTATION OF Status: Acute Current Visit: Yes. - Problem List Review. Problem List Initiated/Reviewed/Updated: No. - My Orders. Last 24 Hours: My Active Orders. 11/02/17 21:10. Patient Status [ADT] Routine. Activity as Tolerated [RC] PFP. Communication Order [RC] ASDIRECTED. Heart Tones [RC] ASDIRECTED. Notify Provider [RC] PFP. Notify Provider [RC] PRN. Peripheral IV Care [RC] . DIRECTED. Vital Signs [RC] PER UNIT ROUTINE. Sodium Chloride 0.9% [Saline Flush] 10 ml FLUSH ASDIRECTED PRN. Electronic Heart Tones Ext w TOCO [WOMSER] Routine. Electronic Heart Tones Internal [WOMSER] Per Unit Routine. Peripheral IV Insertion Adult [OM.PC] Routine. Resuscitation Status Routine. 11/02/17 21:12. PCEA Epidural [RC] ASDIRECTED. Urinary Catheter Assessment [RC] ASDIRECTED. 11/02/17 21:15. Insert Francisco Catheter [Insert Urinary Catheter] [OM.PC] Q24H. Lactated Ringers [Ringers, Lactated] 1,000 ml IV ASDIRECTED. Oxytocin [Pitocin] 20 unit Lactated Ringers [Ringers, Lactated] 1,000 ml IV TITRATE. 11/02/17 21:25. PATIENT RETYPE [BBK] Stat. TYPE AND SCREEN [BBK] Stat. 11/02/17 Dinner. Clear Liquid Diet [DIET]. 11/03/17 09:00. Labetalol [Normodyne] 100 mg PO TID. - Plan. Plan:: Patient seen and evaluated and discussed with student. - Discharge Data Discharge Date: 11/04/17 Discharge Disposition: Admitted As Inpatient 68 Condition: Good - Discharge Diagnosis/Problem(s) (1) Gestational hypertension SNOMED Code(s): 38099486 ICD Code: O13.9 - GESTATIONAL HTN W/O SIGNIFICANT PROTEINURIA, UNSP TRIMESTER Status: Acute Current Visit: Yes Qualifiers: Trimester: third trimester Qualified Code(s): O13.3 - Gestational [ -induced] hypertension without significant proteinuria, third trimester (2) Normal delivery SNOMED Code(s): 78647104 ICD Code: O80 - ENCOUNTER FOR FULL-TERM UNCOMPLICATED DELIVERY; Z37.9 - OUTCOME OF DELIVERY, UNSPECIFIED Status: Acute Current Visit: Yes (3) 39 weeks gestation of SNOMED Code(s): 85718449 ICD Code: Z3A.39 - 39 WEEKS GESTATION OF Status: Acute Current Visit: Yes - Patient Summary/Data Complications: None Consults: None Hospital Course: Uneventful - Patient Instructions Diet: Low Sodium Driving: Do Not Drive (48 hours) Showering/Bathing: May Shower Notify Provider of: Fever, Increased Pain, Swelling and Redness, Drainage, Nausea and/or Vomiting - Discharge Plan Prescriptions/Med Rec: Labetalol [Normodyne] 100 mg PO QID #120 tablet Home Medications: Home Meds Vits #93/Iron Fum/FA [ Formula Tablet] 11/03/17 [History] Ranitidine HCl [Zantac] 150 mg PO 11/03/17 [History] Acetaminophen [Tylenol] 650 mg PO Q4H PRN tablet 11/04/17 [Rx] Ibuprofen [IJD: Ibuprofen] 600 mg PO Q4H PRN tablet 11/04/17 [Rx] Labetalol [Normodyne] 100 mg PO QID #120 tablet 11/04/17 [Rx] Lanolin [Lansinoh HPA] 1 applic TOP ASDIRECTED PRN tube 11/04/17 [Rx] Referrals: Jean Galindo MD [Primary Care Provider] - (2 weeks) - Discharge Summary/Plan Comment DC Time >30 min.: No - Patient Data Vitals - Most Recent: Last Vital Signs Temp 98.2 F 11/04/17 04:08 Pulse 71 11/04/17 04:08 Resp 16 11/04/17 04:08 BP 125/65 11/04/17 04:08 Pulse Ox 100 11/04/17 04:08 Weight - Most Recent: 311 lb 9.6 oz I&O - Last 24 hours: Intake & Output 11/03/17 11/04/17 11/04/17 22:59 06:59 14:59 Intake Total 320 Balance 320 Lab Results - Last 24 hrs: Laboratory Results - last 24 hr 11/04/17 Range/Units 06:20 WBC 9.97 (3.98-10.04) K/mm3 RBC 3.38 L (3.98-5.22) M/mm3 Hgb 9.9 L (11.2-15.7) gm/L Hct 30.3 L (34.1-44.9) % MCV 89.6 (79.4-94.8) fl MCH 29.3 (25.6-32.2) pg MCHC 32.7 (32.2-35.5) g/dl RDW Std Deviation 43.0 (36.4-46.3) fL Plt Count 110 L (182-369) K/mm3 MPV 12.7 H (9.4-12.3) fl Neut % (Auto) 54.2 (34.0-71.1) % Lymph % (Auto) 30.5 (19.3-51.7) % Phillips % (Auto) 13.4 H (4.7-12.5) % Eos % (Auto) 1.4 (0.7-5.8) Baso % (Auto) 0.2 (0.1-1.2) % Neut # (Auto) 5.40 (1.56-6.13) K/mm3 Lymph # (Auto) 3.04 (1.18-3.74) K/mm3 Phillips # (Auto) 1.34 H (0.24-0.36) K/mm3 Eos # (Auto) 0.14 (0.04-0.36) K/mm3 Baso # (Auto) 0.02 (0.01-0.08) K/mm3 Med Orders - Current: Current Medications Acetaminophen (Tylenol) 650 mg PO Q4H PRN PRN Reason: mild pain or fever Benzocaine/Menthol (Dermoplast Pain Relief Capron) 0 gm TOP ASDIRECTED PRN PRN Reason: Perineal Comfort Measure Last Admin: 11/03/17 20:26 Dose: 1 canister Docusate Sodium (Colace) 100 mg PO BID PRN PRN Reason: Constipation Last Admin: 11/03/17 21:39 Dose: 100 mg Emollient Ointment (Lansinoh Hpa) 0 gm TOP ASDIRECTED PRN PRN Reason: Sore Nipples Last Admin: 11/03/17 21:39 Dose: 1 tube Ibuprofen (Motrin) 600 mg PO Q4H PRN PRN Reason: Mild pain or fever Last Admin: 11/04/17 01:36 Dose: 600 mg Labetalol HCl (Normodyne) 100 mg PO TID DC Last Admin: 11/03/17 21:39 Dose: 100 mg Simethicone (Simethicone) 80 mg PO Q4H PRN PRN Reason: Gas Witch Ashley (Tucks) 1 pad TOP ASDIRECTED PRN PRN Reason: Hemorrhoid pain Discontinued Medications Ammonia (Aromatic Spirit) (Ammonia Aromatic Inhalant) Confirm Administered Dose 1 ampule .ROUTE .STK-MED ONE Stop: 11/03/17 01:00 Last Admin: 11/03/17 07:44 Dose: Not Given Bupivacaine HCl (Sensorcaine-Mpf 0.25%) 10 ml .ROUTE .STK-MED ONE Stop: 11/03/17 22:23 Ephedrine Sulfate (Ephedrine Sulfate) 5 mg IVPUSH ASDIRECTED PRN PRN Reason: Hypotension Fentanyl (Sublimaze) 100 mcg EPIDUR Q3H PRN PRN Reason: Pain Last Admin: 11/03/17 00:15 Dose: 100 mcg Fentanyl/Bupivacaine HCl (Fentanyl/Bupivacaine/Ns 2 Mcg-0.125% 100 Ml) 100 ml EPIDUR ASDIRECTED [facility] Last Admin: 11/03/17 00:14 Dose: 100 ml Lactated Ringer's (Ringers, Lactated) 1,000 mls @ 100 mls/hr IV ASDIRECTED [facility] Last Admin: 11/03/17 07:31 Dose: 100 mls/hr Oxytocin 20 unit/ Lactated (Ringer's) 1,002 mls @ 500 mls/hr IV TITRATE [facility] PRN Reason: Protocol Oxytocin/Lactated Ringer's (Pitocin In Lr 20 Units/1,000 Ml) Confirm Administered Dose 20 unit in 1,000 mls @ as directed IV .STK-MED ONE Stop: 11/03/17 08:20 Last Admin: 11/03/17 08:55 Dose: 999 unit Labetalol HCl (Normodyne) 100 mg PO TID DC Last Admin: 11/03/17 18:55 Dose: Not Given Ondansetron HCl (Zofran) 4 mg IVPUSH ONETIME PRN PRN Reason: Nausea/Vomiting Sodium Chloride (Saline Flush) 10 ml FLUSH ASDIRECTED PRN PRN Reason: Keep Vein Open *Q Meaningful Use (DIS) - VTE *Q VTE Criteria *Q: - Stroke *Q Stroke Criteria *Q: - AMI *Q AMI Criteria *Q:
[2017-11-04] MEDS: Labetalol 100 MG Tab PO SCH (10:35)
== END 2017-11-04 11:00 | disposition critical access hospital (66) | DRG 775 ==
LOC: JD.OBCHECK 20:38 → JD.OB 20:38 → JD.OBCHECK 21:09 → JD.OB 21:10 → OBSVTOIN 11-03 08:55 → JD.OB 11-03 08:55
PROVIDERS: ADMIT Obstetrics & Gynecology; ATTEND Obstetrics & Gynecology
PROC: 10E0XZZ Delivery of Products of Conception, External Approach (ICD-10-PCS; principal; 2017-11-03)
PROC: 10907ZC Drainage of Amniotic Fluid, Therapeutic from Products of Conception, Via Natural or Artificial Opening (ICD-10-PCS; 2017-11-03)
DX: O42.02 Full-term premature rupture of membranes, onset of labor within 24 hours of rupture (principal); Z3A.39 39 weeks gestation of pregnancy; Z37.0 Single live birth; O13.4 Gestational [pregnancy-induced] hypertension without significant proteinuria, complicating childbirth
CPT/HCPCS: 36415; 51702; 59409; 85025; 86850; 86900; 86901; A9270-GY; J2590; J3010; J7120